=== PATIENT | male | born 1945 | race Caucasian/White ===

== ENCOUNTER 2018-06-02 01:24 | Inpatient (IN) | payer MEDICARE, MEDICAID, SELFPAY ==
[2018-06-01 22:50] VITALS: BP 130/72; PULSE 75; RESP 22; TEMP 37.5; O2SAT 94
[2018-06-01 23:20] VITALS: PULSE 69; RESP 16; O2SAT 95
[2018-06-01 23:44] VITALS: PULSE 72; TEMP 37.5
[2018-06-02] VITALS (23 sets, daily range): BP systolic 114–142; BP diastolic 51–69; PULSE 61–81; RESP 2–24; TEMP 36.9–38.2; O2SAT 92–95
--- NOTE | 2018-06-02 01:34 | W.PM.HP.N ---
Date of service: 06/02/18 Time of Service: 01:35 Assessment and Plan (1) Pancreatitis: Start date: 06/01/18 Current visit: Yes Status: Acute This is a 73-year-old gentleman who was seen at [facility] ED for evaluation of abdominal discomfort and constipation and was found to be febrile with acute diffuse pancreatitis by CT scan with some mild abdominal discomfort in the epigastrium and severe leukocytosis as well as having bibasilar pulmonary infiltrates seen on CT scan of the abdomen with no infiltrates seen on chest x-ray in a patient with COPD. He was transferred here for acute admission for treatment of his pancreatitis and pneumonia. He will be placed on bowel rest with IV hydration and ice chips with sips of fluid with his usual meds. Lipase was not markedly elevated but will be followed up in the morning and will schedule an ultrasound of the gallbladder for the morning patient still having his gallbladder and not having alcohol intake recently to explain his acute pancreatitis. We will also check his lipid profile looking for hypertriglyceridemia. (2) Pneumonia, community acquired: Start date: 06/01/18 Current visit: Yes Status: Acute With severe leukocytosis in a patient with COPD, the patient will be continued on IV antibiotics with Levaquin. Follow-up chest x-ray if not improving clinically. Maximize treatment for COPD and avoid steroids since there is no significant bronchospasm or hypoxemia. (3) Leukocytosis: Start date: 06/01/18 Current visit: Yes Status: Acute The white blood count seems out of proportion to the patient's clinical presentation. Follow-up as we treat his known acute processes with his pancreas and pneumonia. Follow-up blood cultures. He does not appear or meet the criteria for sepsis. (4) COPD (chronic obstructive pulmonary disease): Current visit: Yes Status: Chronic Continue chronic respiratory care with oxygen supplementation if needed. We will avoid steroids. (5) Dementia associated with alcoholism without behavioral disturbance: Current visit: Yes Status: Chronic Monitor for worsening mental status the patient. Comfortable presently and only mildly demented. He is not a good historian. (6) Chronic right-sided CHF (congestive heart failure): Current visit: Yes Status: Acute We will follow-up an echocardiogram in the morning and continue his diuretics for now. He is on gentle IV hydration with bowel rest and will watch for fluid overload. Daily weights. History of Present Illness Chief Complaint: Abdominal pain with constipation Narrative: This is a 73-year-old gentleman who was transferred from [facility] emergency room because of no bed mobility at that facility. He was evaluated for constipation but was found to have very severe diffuse pancreatitis by CT scan and epigastric abdominal discomfort with palpation. He also had a significant leukocytosis and was afebrile upon presentation. CT scan of the abdomen revealed the pancreatitis but also bilateral lower lung infiltrates more on the left than right with chest x-ray not revealing lobar pneumonia. He was given Levaquin and Flagyl at the [facility] ED while being evaluated with CT scan of his abdomen. He chronically resides at a level 3 facility, [facility] [place] in [facility]. He was a previous heavy drinker being an alcoholic but has not been able to drink recently at the level 3 facility. He has mild dementia from his chronic alcoholism and is unable to give accurate history though he seems to remember not living at this facility for very long, possibly from 2015 and having lived in [place] prior. Patient has a chronic indwelling Grider catheter for bladder outlet obstruction and has a history of CHF which mostly appears to be right-sided though there is no documented echocardiogram in his records from [facility]. He did have a negative cardiac evaluation in the ED with the EKG being unrevealing with sinus rhythm and troponin negative. BNP was not checked. Patient presently offers no other complaints other than his abdominal discomfort and he does purse lip breath which he states is by habit with no dyspnea or cough presently. He is not hypoxic on room air. Past medical history significant for obesity, dementia associated with alcoholism, chronic insomnia, hypertension, hyperlipidemia, BPH with bladder outlet obstruction with chronic indwelling Grider catheter, CHF on diuretics, chronic anemia, recurrent pneumonia with COPD and chronic liver disease. Past surgical history significant for pilonidal cyst removal and tonsillectomy. Patient has not had a cholecystectomy. Medications include atorvastatin 20 mg daily, carvedilol 25 mg twice a day, clotrimazole 1% topical cream twice a day on rash, Combivent Respimat 20 mcg - 100 mcg per actuation 1 inhalation 3 times a day, ferrous sulfate 3.5 mg daily, Flovent 110 mcg per actuation 1 inhalation twice a day, furosemide 40 mg daily, Incruse Ellipta 62.5 mcg per actuation 1 inhalation daily, DuoNeb nebulizer 4 times daily, melatonin 3 mg at night, NicoDerm 14 mg per 24 hours topically daily with weaning dose, Aldactone 50 mg daily and trazodone 50 mg daily at bedtime. Social history positive for patient is a former smoker quitting 1 year ago after smoking 2 packs/day and is still on nicotine patches to help with cessation in the level 3 facility. He is a former drinker with no recent alcohol intake sequelae of chronic alcoholism. Family history unavailable. Review of Systems Review of Systems 13 point review of systems otherwise unrevealing or unobtainable with patient's short-term memory loss and moderate dementia. This was reviewed with the [facility] ED physician. [facility] Social History Smoking/Tobacco Use Status: Former Tobacco Use Meds Home Medications Medication Instructions Recorded Confirmed Type atorvastatin 20 mg PO DAILY 06/02/18 06/02/18 History carvedilol 25 mg PO BID 06/02/18 06/02/18 History clotrimazole 1 applic BID PRN 06/02/18 06/02/18 History ferrous sulfate 325 mg DAILY 06/02/18 06/02/18 History fluticasone propionate [Flovent 1 puff BID 06/02/18 06/02/18 History HFA] ipratropium-albuterol 3 ml QID 06/02/18 06/02/18 History ipratropium-albuterol [Combivent 1 puff TID 06/02/18 06/02/18 History Respimat] melatonin 06/02/18 History spironolactone 50 mg DAILY 06/02/18 06/02/18 History trazodone 50 mg HS 06/02/18 06/02/18 History umeclidinium [Incruse Ellipta] 1 inh DAILY 06/02/18 06/02/18 History Allergies Allergy/AdvReac Type Severity Reaction Status Date / Time Penicillins Allergy Unverified 06/01/18 23:00 Exam Narrative Exam Narrative: General: Patient appears younger than stated age in no acute distress, obese, affect slightly flattened with poor eye contact, alert and oriented to person and place but not to time HEENT: Normocephalic, hair long and rosario, ears normal, eyes with pupils equal and reactive to light symmetrically and extraocular movement intact, sclera anicteric. Oropharynx with moist, pink mucosa Neck: Supple without JVD Back: Stooped posture with slight kyphosis, no CVA tenderness Lungs: Bronchovesicular breath sounds diffusely with fair aeration, no focalizing rales or rhonchi, slightly increased expiratory phase with no expiratory wheeze, purse lipped breathing Heart: Distant heart sounds with regular rate and rhythm, no murmurs or gallops appreciated Abdomen: Obese and soft, tender to palpation in the upper abdomen especially over the epigastrium with slight guarding but no rebound, bowel sounds hypoactive but present in all quadrants, no palpable hepatosplenomegaly, no Sandoval's sign Genitalia: Normal penis with Grider catheter in place, scrotum and testicles grossly normal Rectal: Deferred. Extremities: Nonpitting edema with chronic skin changes over lower extremities, decreased range of motion of joints but no joint swelling, no clubbing or cyanosis Skin: Pale, warm and dry with no rashes, good turgor and rough texture Neuro: Cranial nerves II through XII grossly intact, no focalizing motor deficits, decreased short-term memory Psych: Flattened affect with poor eye contact, short-term memory loss with long-term memory more intact, no abnormal thought processes, mood normal without depression or anxiety Results Imaging Imaging Studies: CT of the abdomen performed at [facility], impression acute pancreatitis with nonspecific bibasilar airspace disease greater on the left than right Labs : 06/02/18 05:35 06/02/18 05:35 CBC: H&H 12.3/37.8 with MCV 91.1, WBC 27.1, platelet count 302 Lactic acid 1.1 which is normal CMP: Random glucose 129, BUN 22 with creatinine 1.4, calcium 8.4, sodium 134, potassium 4.2 with PCO2 28.0, total protein 7.3 with albumin 3.6, total bili 0.6, alk phos 68, ALT 18 which is low and AST 24 Lipase 442 which is high normal being 23-300 LDH 510 which is normal Last Vital Signs Temp 37.5 C 06/01/18 23:44 Pulse 71 06/02/18 00:29 Resp 18 06/02/18 00:29 BP 142/55 H 06/02/18 00:29 Pulse Ox 93 L 06/02/18 00:29
[2018-06-02] MEDS: Albuterol/Ipratropium 3 ML UPD VIAL UPD ×5 (02:13→23:23)
[2018-06-02] MEDS: Normal Saline 1,000 ML 80 ML IV (02:13)
[2018-06-02] MEDS: Docusate Sodium 100 MG CAP PO ×3 (02:21→20:09)
[2018-06-02] MEDS: Heparin 5,000 UNITS/ML VIAL 5000 UNITS SC ×3 (05:32→21:26)
[2018-06-02 08:21] LABS: HCT 34.6 % (40.0-50.0); HGB 11.2 g/dL (13.5-17.5); Mean Corp. HGB Concentration 32.4 g/dL (32.0-36.0); Mean Corpuscular Hemoglobin 29.2 pg (27.0-33.0); Mean Corpuscular Volume 90.3 fL (80-95); Mean Platelet Volume 10.2 fL (8.0-11.0); Platelet Count 272 x1000/uL (130-400); RBC 3.83 m/cumm (4.50-6.00); RBC Distribution Width 14.4 % (11.8-14.1); White Blood Cell Count 22.73 k/cumm (4.4-10.8)
[2018-06-02 08:42] LABS: ALT 24 U/L (12-78); AST 15 U/L (15-37); Albumin 2.4 g/dL (3.4-5.0); Alkaline Phosphatase 61 U/L (46-116); Anion Gap 8.4 mmol/L (3-11); BUN 18 mg/dL (7-18); Bilirubin, Total 0.5 mg/dL (0.2-1.0); CO2 25.6 mmol/L (21.0-32.0); CREATININE 1.32 mg/dL (0.70-1.30); Calcium 8.3 mg/dL (8.5-10.1); Chloride 102 mmol/L (98-107); Cholesterol 97 mg/dL (50-200); Estimated GFR 53.32 (mL/min/1.73m2); Glucose 96 mg/dL (70-100); HDL Cholesterol 21 mg/dL (40-60); LDL CHOLESTEROL 63 mg/dL (<100); Potassium 4.4 mmol/L (3.5-5.1); Sodium 136 mmol/L (136-145); Total Protein 6.9 g/dL (6.4-8.2); Triglyceride 86 mg/dL (30-150)
--- NOTE | 2018-06-02 08:54 | MERGE_ITS ---
*[facility]* *[facility]* [address] [place] [address] Date of study: 06/02/2018 Transthoracic Echocardiography M-mode, complete 2D, complete spectral Doppler, and color Doppler *STUDY CONCLUSIONS* Summary: 1. Left ventricle: The cavity size was normal. Wall thickness was increased in a pattern of moderate LVH. Systolic function was hyperdynamic. The estimated ejection fraction was 65-70%. Findings consistent with diastolic dysfunction. Doppler parameters are consistent with high ventricular filling pressure. 2. Mitral valve: There was mild regurgitation. 3. Right ventricle: The cavity size was normal. Wall thickness was normal. Systolic function was normal. 4. Atrial septum: No defect or patent foramen ovale was identified. 5. Pulmonary arteries: Pulmonary systolic pressure was in the range of 50mm Hg to 60mm Hg. 6. Inferior vena cava: The vessel was patent and normal in size. The respirophasic diameter changes were in the normal range (greater than or equal to 50%), consistent with normal central venous pressure. *PATIENT PRESENTATION* Height: 172.7cm ((68in) ) S/D Pressure: 119 / 57 Weight: 117.9kg ((259.5lb) ) BSA: 2.43m^2 Test start time: 08:57 AM. Test stop time: 09:45 AM. ORDERING Paulie Ferreira REFERRING Paulie Ferreira PERFORMING Unknown PERFORMING [facility] SOFTWARE CONFIGURATION SPECIALIST RT Blanca LooR)([email or web address])GALI *PROCEDURE DATA* Procedure information: The patient was identified by two identifiers. This study was interpreted by [facility]. Pertinent images and digital data are archived for permanent storage and are available for subsequent review. Comparison was made to the study of 2007. Study status: Routine. Transthoracic echocardiography. M-mode, complete 2D, complete spectral Doppler, and color Doppler. A Transthoracic Echocardiogram was performed. Scanning was performed from the parasternal, apical, subcostal, and suprasternal notch acoustic windows. Images were obtained using an [id number] cardiac ultrasound machine. Image quality was fair. Study completion: The patient tolerated the procedure well. History: PMH: CHF. *CARDIAC ANATOMY* Left ventricle: The cavity size was normal. Wall thickness was increased in a pattern of moderate LVH. Systolic function was hyperdynamic. The estimated ejection fraction was 65-70%. The tissue Doppler parameters were abnormal. Findings consistent with diastolic dysfunction. Doppler parameters are consistent with high ventricular filling pressure. Aortic valve: Trileaflet. Doppler: There was no stenosis. There was no regurgitation. VTI ratio of LVOT to aortic valve: 0.84. Valve area (VTI): 2.4cm^2. Indexed valve area (VTI): 1cm^2/m^2. Peak velocity ratio of LVOT to aortic valve: 0.74. Valve area (Vmax): 2.2cm^2. Indexed valve area (Vmax): 0.9cm^2/m^2. Mean velocity ratio of LVOT to aortic valve: 0.79. Valve area (Vmean): 2.3cm^2. Indexed valve area (Vmean): 1cm^2/m^2. Mean gradient (S): 6.6mm Hg. Peak gradient (S): 11.1mm Hg. Aorta: Aortic root: The aortic root was normal in size. Ascending aorta: The ascending aorta was normal in size. Mitral valve: Doppler: There was no evidence for stenosis. There was mild regurgitation. Valve area by pressure half-time: 3.1cm^2. Indexed valve area by pressure half-time: 1.3cm^2/m^2. Peak gradient (D): 4.3mm Hg. Left atrium: The atrium was normal in size. Atrial septum: No defect or patent foramen ovale was identified. Right ventricle: The cavity size was normal. Wall thickness was normal. Systolic function was normal. Pulmonic valve: Doppler: There was no evidence for stenosis. There was no significant regurgitation. Peak gradient (S): 5.5mm Hg. Tricuspid valve: Doppler: There was mild regurgitation. Pulmonary artery: Poorly visualized. Pulmonary systolic pressure was in the range of 50mm Hg to 60mm Hg. Right atrium: The atrium was normal in size. Pericardium: There was no pericardial effusion. Systemic veins: Inferior vena cava: Well visualized. The vessel was patent and normal in size. The respirophasic diameter changes were in the normal range (greater than or equal to 50%), consistent with normal central venous pressure. Baseline ECG: Normal sinus rhythm. Measurements Left ventricle Value Reference LV ID, ED, PLAX 4.5 cm 3.5 - 6.0 LV ID, ES, PLAX 2.6 cm 2.1 - 4.0 LV PW thickness, ED, PLAX 1.4 cm LV end-diastolic volume, 1-p A2C 85 ml LV ejection fraction, 1-p A2C 63 % LV end-diastolic volume, 1-p A4C 96 ml LV ejection fraction, 1-p A4C 66 % LV e', lateral 0.061 m/sec LV E/e', lateral 17 LV e', medial 0.057 m/sec LV E/e', medial 18 LV e', average 0.059 m/sec LV E/e', average 18 Ventricular septum Value Reference IVS thickness, ED, PLAX 1.3 cm LVOT Value Reference LVOT ID, A-P 1.9 cm LVOT area 2.9 cm^2 LVOT peak velocity, S 1.23 m/sec LVOT mean velocity, S 0.97 m/sec LVOT VTI, S 29.4 cm LVOT peak gradient, S 6.1 mm Hg LVOT mean gradient, S 4 mm Hg Stroke volume (SV), LVOT DP 86 ml Stroke index (SV/bsa), LVOT DP 35 ml/m^2 Aortic valve Value Reference Aortic valve peak velocity, S 1.7 m/sec Aortic valve mean velocity, S 1.23 m/sec Aortic valve VTI, S 35.0 cm Aortic mean gradient, S 6.6 mm Hg Aortic peak gradient, S 11.1 mm Hg VTI ratio, LVOT/AV 0.84 Aortic valve area, VTI 2.4 cm^2 Velocity ratio, peak, LVOT/AV 0.74 Aortic valve area, peak velocity 2.2 cm^2 Velocity ratio, mean, LVOT/AV 0.79 Aortic valve area, mean velocity 2.3 cm^2 Aortic valve area/bsa, mean velocity 1 cm^2/m^2 Aorta Value Reference Aortic root ID, ED 3.7 cm Ascending aorta ID, A-P, S 2.6 cm Left atrium Value Reference LA ID, A-P, ES 4.5 cm LA ID/bsa, A-P 1.8 cm/m^2 <=2.2 LA area, ES, A4C 22.5 cm^2 8.8 - 23.4 LA area, ES, A2C 24 cm^2 LA volume/bsa, ES, 1-p A4C 32 ml/m^2 LA volume, ES, 2-p 71 ml LA volume/bsa, ES, 2-p 29 ml/m^2 LA/aortic root ratio 1.22 Mitral valve Value Reference Mitral E-wave peak velocity 1.04 m/sec Mitral A-wave peak velocity 1.17 m/sec Mitral deceleration time (H) 244 ms 150 - 230 Mitral pressure half-time 71 ms Mitral peak gradient, D 4.3 mm Hg Mitral E/A ratio, peak 0.89 Mitral valve area, PHT, DP 3.1 cm^2 Pulmonary veins Value Reference Pulmonary vein peak velocity, S 0.8 m/sec Pulmonary vein peak velocity, D 0.6 m/sec Pulmonary vein velocity ratio, peak, 1.33 S/D Pulmonary vein A-wave reversal peak 0.39 m/sec velocity Tricuspid valve Value Reference Tricuspid regurg peak velocity 3.6 m/sec Tricuspid peak RV-RA gradient 52.7 mm Hg Right atrium Value Reference RA area, ES, A4C 15.2 cm^2 8.3 - 19.5 Pulmonic valve Value Reference Pulmonic peak gradient, S 5.5 mm Hg Legend: (L) and (H) juan values outside specified reference range. I have personally reviewed the images and have reviewed and edited the reported findings. Electronically signed by Darío Posada MD 06/02/2018 10:40
--- NOTE | 2018-06-02 09:05 | PDOC.CMIN ---
Care Management Initial Assess REASON FOR HOSPITALIZATION:: Pneumonia, Pancreatitis PAST MEDICAL HISTORY/PAST SURGICAL HISTORY:: CHF-chronic right sided, COPD, Dementia associated with alcoholism without behavioral disturbance, HTN, liver disease, pneumathemia, pancreattitis, leukocytosis PREVIOUS FUNCTIONAL STATUS/SOCIAL/FAMILY SUPPORTS:: Juan C resides in an assisted living home; [facility] in [place], [place]. His primary supporta are his brother, Andreas and sister in law Sue. Per reports he is oriented to self only due to dementia associated with prior alcohol abuse. CURRENT FUNCTIONAL STATUS:: Juan C was lying in bed, pleasant in interaction and open to discussion. He reported anticipating returning to [facility] but reported that would be up to his brother and the facility. ADVANCE DIRECTIVES:: POA: Sue Johns Has patient been provided with information about the portal?: No Did the patient sign up for the portal?: No CODE STATUS:: Full Code INSURANCE COVERAGE / FINANCIAL ISSUES:: Medicaid. Medicare CURRENT HOME/COMMUNITY SERVICES/EQUIPMENT:: Assisted living facility. PRIMARY CARE PHYSICIAN:: Paulie Ferreira POTENTIAL DISCHARGE NEEDS:: Coordinated return to assisted living facility, follow up appointments. PATIENT/FAMILY EDUCATION NEEDS:: Review of discharge instructions; discuss Ask Me Three. ANTICIPATED BARRIERS TO DISCHARGE:: None identified. TRANSPORTATION:: TBD by clinical need; remains on bedrest. PLAN:: CM will continue to monitor clinical status. Juan C will return to [facility]; [facility] [place] in [place], [place]. Transportation dependent on mobility.
[2018-06-02] MEDS: Atorvastatin 20 MG TAB PO (09:08)
[2018-06-02] MEDS: Carvedilol 25 MG TAB PO ×2 (09:08→20:09)
--- NOTE | 2018-06-02 10:20 | DI.US_ITS ---
SYMPTOM/DIAGNOSIS: PANCREATITIS LIMITED ABDOMEN ULTRASOUND: The right upper quadrant was scanned. Multiple small stones are noted in the gallbladder. There is no gallbladder wall thickening or pericholecystic fluid. The common bile duct measures 4 mm. No common duct stones are seen. The pancreas appeared echogenic. No surrounding fluid is seen. The pancreas was not well visualized. IMPRESSION: Cholelithiasis. Limited visualization of the pancreas.
--- NOTE | 2018-06-02 10:30 | INITIAL_ITS ---
Care Management Initial Assess REASON FOR HOSPITALIZATION:: Pneumonia, Pancreatitis PAST MEDICAL HISTORY/PAST SURGICAL HISTORY:: CHF-chronic right sided, COPD, Dementia associated with alcoholism without behavioral disturbance, HTN, liver disease, pneumathemia, pancreattitis, leukocytosis PREVIOUS FUNCTIONAL STATUS/SOCIAL/FAMILY SUPPORTS:: Juan C resides in an assisted living home; [facility] in [place], [place]. His primary supporta are his brother, Andreas and sister in law Sue. Per reports he is oriented to self only due to dementia associated with prior alcohol abuse. CURRENT FUNCTIONAL STATUS:: Juan C was lying in bed, pleasant in interaction and open to discussion. He reported anticipating returning to [facility] but reported that would be up to his brother and the facility. ADVANCE DIRECTIVES:: POA: Sue Johns Has patient been provided with information about the portal?: No Did the patient sign up for the portal?: No CODE STATUS:: Full Code INSURANCE COVERAGE / FINANCIAL ISSUES:: Medicaid. Medicare CURRENT HOME/COMMUNITY SERVICES/EQUIPMENT:: Assisted living facility. PRIMARY CARE PHYSICIAN:: Paulie Ferreira POTENTIAL DISCHARGE NEEDS:: Coordinated return to assisted living facility, follow up appointments. PATIENT/FAMILY EDUCATION NEEDS:: Review of discharge instructions; discuss Ask Me Three. ANTICIPATED BARRIERS TO DISCHARGE:: None identified. TRANSPORTATION:: TBD by clinical need; remains on bedrest. PLAN:: CM will continue to monitor clinical status. Juan C will return to [facility]; [facility] [place] in [place], [place]. Transportation dependent on mobility.
[2018-06-02] MEDS: Polyethylene Glycol 3350 17 GM PACKET PO (12:45)
[2018-06-02] MEDS: Normal Saline 1,000 ML 125 ML IV (12:45)
--- NOTE | 2018-06-02 14:33 | PGE_ITS ---
Date of Service Date of service: 06/02/18 Time of Service: 14:25 Subjective Interval history since last seen: Mr Das states he has no abdominal pain whatsoever. He still hadn't had a BM. He denies dizziness, chest pain, shortness of breath, complains of cough, but states it's getting better. He denies any nausea/vomiting. He was hungry and requested food. At this point, he does not appear to actually have clinical pancreatitis. I think his borderline elevated lipase and CT findings may have had more to do with constipation. We will continue his bowel regimen. For CAP, we will continue levofloxacin. Echo shows diastolic dysfunction, EF is preserved. Patient is not in fluid overloaded clinically. He does have pulmonary hypertension and, if he has not yet had workup for obstructive sleep apnea, he should. We will attempt to find out. Will monitor fo r nocturnal hypoxia. Objective Objective Clinical Data: Abnormal lab results 06/02/18 06/02/18 Range/Units 08:08 08:08 WBC 22.73 H (4.4-10.8) k/cumm RBC 3.83 L (4.50-6.00) m/cumm Hgb 11.2 L (13.5-17.5) g/dL Hct 34.6 L (40.0-50.0) % RDW 14.4 H (11.8-14.1) % Creatinine 1.32 H (0.70-1.30) mg/dL Calcium 8.3 L (8.5-10.1) mg/dL Albumin 2.4 L (3.4-5.0) g/dL HDL Cholesterol 21 L (40-60) mg/dL Vital Signs Temperature 37 C 06/02/18 11:56 Temperature Source Temporal Artery Scan 06/02/18 11:56 Pulse 80 06/02/18 12:05 Pulse Rhythm Regular 06/02/18 11:53 Pulse 66 06/02/18 11:59 Respiratory Rate 14 06/02/18 12:05 Respiratory Effort 06/02/18 11:53 Respiratory Depth Normal 06/02/18 11:53 Respiratory Pattern Normal 06/02/18 11:53 Blood Pressure 114/51 L 06/02/18 11:59 Blood Pressure Mean 64 06/02/18 11:59 Pulse Oximetry 94 L 06/02/18 12:05 Oxygen Delivery Method Room Air 06/02/18 11:56 Oxygen Flow Rate 0 06/02/18 11:56 Pain Level 0 06/02/18 11:56 Comment 06/02/18 11:56 Intake & Output 06/01/18 06/02/18 06/02/18 23:59 11:59 23:59 Intake Total 516 / 1400 884 / 1400 Output Total 1450 / 1450 Balance -934 / -50 884 / -50 Weight 118 kg Intake: IV 516 / 1000 484 / 1000 Oral 400 / 400 Output: Urine 1450 / 1450 Other: Urine Color Yellow Light Bita Urine Appearance Clear Clear Comment Indwelling campa catheter in place. Laboratory Results WBC 22.73 k/cumm (4.4-10.8) H 06/02/18 08:08 RBC 3.83 m/cumm (4.50-6.00) L 06/02/18 08:08 Hgb 11.2 g/dL (13.5-17.5) L 06/02/18 08:08 Hct 34.6 % (40.0-50.0) L 06/02/18 08:08 MCV 90.3 fL (80-95) 06/02/18 08:08 MCH 29.2 pg (27.0-33.0) 06/02/18 08:08 MCHC 32.4 g/dL (32.0-36.0) 06/02/18 08:08 RDW 14.4 % (11.8-14.1) H 06/02/18 08:08 Plt Count 272 x1000/uL (130-400) 06/02/18 08:08 MPV 10.2 fL (8.0-11.0) 06/02/18 08:08 Sodium 136 mmol/L (136-145) 06/02/18 08:08 Potassium 4.4 mmol/L (3.5-5.1) 06/02/18 08:08 Chloride 102 mmol/L (98-107) 06/02/18 08:08 Carbon Dioxide 25.6 mmol/L (21.0-32.0) 06/02/18 08:08 Anion Gap 8.4 mmol/L (3-11) 06/02/18 08:08 BUN 18 mg/dL (7-18) 06/02/18 08:08 Creatinine 1.32 mg/dL (0.70-1.30) H 06/02/18 08:08 Estimated GFR/1.73 m2 53.32 (mL/min/1.73m2) 06/02/18 08:08 Glucose 96 mg/dL (70-100) 06/02/18 08:08 Calcium 8.3 mg/dL (8.5-10.1) L 06/02/18 08:08 Total Bilirubin 0.5 mg/dL (0.2-1.0) 06/02/18 08:08 AST 15 U/L (15-37) 06/02/18 08:08 ALT 24 U/L (12-78) 06/02/18 08:08 Alkaline Phosphatase 61 U/L (46-116) 06/02/18 08:08 Total Protein 6.9 g/dL (6.4-8.2) 06/02/18 08:08 Albumin 2.4 g/dL (3.4-5.0) L 06/02/18 08:08 Triglycerides 86 mg/dL (30-150) 06/02/18 08:08 Total Cholesterol 97 mg/dL (50-200) 06/02/18 08:08 LDL Cholesterol Direct 63 mg/dL (<100) 06/02/18 08:08 HDL Cholesterol 21 mg/dL (40-60) L 06/02/18 08:08
--- NOTE | 2018-06-02 15:01 | PHARADMIT ---
Addendum entered by Guerrero Law III 06/03/18 11:19: Pharmacy Note Subjective MD concerned patient my have aspiration Pneumonia, On Levaquin IV. Also concerned about need for a BM. No abdominal pain ccomplaints Objective VS-OK Temp-37.3C Lytes-OK, SCr-1.34 WBC-16.75 H&H-10.1/31.5 Plts-285 Wgt-118.3 kg No BM Assessment Levaquin continues, on bowel regimen. Plan Possible discharge tomorrow. Original Note: Admission Pharmacy Clinical Review pneumonia, pancreatitis Code Status Full Code Current Weight 118 kg Renally Cleared and Narrow Therapeutic Index Meds Crcl ~63.1 mL/min using adjusted bodyweight current meds okay QTc Value / Action Taken QTc 390 BP Control, Fever BP 114/51 afebrile Electrolytes reviewed within normal limits DVT Prophylaxis heparin Opiate Usage / Scheduled Bowel Regimen Ordered no/godwin and prn Plt/SCr for Heparin / Enoxaparin plt 272 SCr 1.32 INR for Warfarin n/a H/H stable, WBC/Bands h/h 11.2/34.6 wbc 22.73 Antibiotic appropriateness none Cultures and Sensitivities MRSA- pending Surgical ABX d/c within 24 hr n/a DM control / Insulin Dosing BG 96 none Heart Failure (Check EF%) (ANJELICA's, B-Block, Diuretics) carvedilol IV to PO Switch n/a Home Meds Reviewed -multiple anticilinergic meds- increased risk of anticholinergic effects (umeclidinium, ipratropium) -carvedilol may diminish the bronchodilatory effect of albuterol Home Meds Not Ordered clotrimazole, ferrous sulfate, fulticasone, spironolactone (was cancelled), umeclidinium Comments
[2018-06-02] MEDS: levoFLOXacin 750 MG/150 ML BAG 100 MG IVPB (16:09)
[2018-06-02] MEDS: Bisacodyl 5 MG TABEC 10 MG PO (16:10)
[2018-06-02] MEDS: Acetaminophen 500 MG TAB 1000 MG PO (18:28)
[2018-06-02] MEDS: Senna TAB 1 TAB PO (20:10)
[2018-06-02] MEDS: Mometasone 220 MCG 14 DOSE INHALER 1 PUFF IH (20:10)
[2018-06-02] MEDS: Melatonin 3 MG TAB PO (21:25)
[2018-06-02] MEDS: traZODone 50 MG TAB PO (21:25)
[2018-06-03] VITALS (9 sets, daily range): BP systolic 106–127; BP diastolic 59–66; PULSE 62–71; RESP 1–20; TEMP 37.3–37.9; O2SAT 93–96
[2018-06-03] MEDS: Normal Saline 1,000 ML 75 ML IV ×2 (01:42→14:35)
[2018-06-03] MEDS: Heparin 5,000 UNITS/ML VIAL 5000 UNITS SC ×3 (05:13→21:55)
[2018-06-03] MEDS: Albuterol/Ipratropium 3 ML UPD VIAL UPD ×4 (05:13→23:28)
[2018-06-03 07:13] LABS: HCT 31.5 % (40.0-50.0); HGB 10.1 g/dL (13.5-17.5); Mean Corp. HGB Concentration 32.1 g/dL (32.0-36.0); Mean Corpuscular Hemoglobin 29.3 pg (27.0-33.0); Mean Corpuscular Volume 91.3 fL (80-95); Mean Platelet Volume 10.2 fL (8.0-11.0); Platelet Count 281 x1000/uL (130-400); RBC 3.45 m/cumm (4.50-6.00); RBC Distribution Width 14.5 % (11.8-14.1); White Blood Cell Count 16.75 k/cumm (4.4-10.8)
[2018-06-03 07:46] LABS: Anion Gap 8.3 mmol/L (3-11); BUN 21 mg/dL (7-18); CO2 24.7 mmol/L (21.0-32.0); CREATININE 1.34 mg/dL (0.70-1.30); Calcium 8.3 mg/dL (8.5-10.1); Chloride 103 mmol/L (98-107); Glucose 108 mg/dL (70-100); Magnesium 2.3 mg/dL (1.8-2.4); Potassium 4.9 mmol/L (3.5-5.1); Sodium 136 mmol/L (136-145)
[2018-06-03 07:49] LABS: ALT 24 U/L (12-78); AST 16 U/L (15-37); Albumin 2.2 g/dL (3.4-5.0); Alkaline Phosphatase 59 U/L (46-116); Bilirubin, Total 0.3 mg/dL (0.2-1.0); Total Protein 6.6 g/dL (6.4-8.2)
[2018-06-03 07:50] LABS: Bilirubin, Direct 0.11 mg/dL (0.00-0.20)
[2018-06-03] MEDS: Docusate Sodium 100 MG CAP PO ×3 (08:09→19:55)
[2018-06-03] MEDS: Senna TAB 1 TAB PO ×2 (08:09→19:55)
[2018-06-03] MEDS: Carvedilol 25 MG TAB PO ×2 (08:09→19:56)
[2018-06-03] MEDS: Atorvastatin 20 MG TAB PO (08:09)
--- NOTE | 2018-06-03 10:36 | PDOC.CMPRO ---
Care Management Progress Note S/O: Juan C remains pleasantly confused but appropriate in interaction and was lying in bed when CM met with him. MD shared concerns for aspiration risks, and continues to monitor Juan C closely. CM will continue to follow. Anticipate he may be discharge ready as soon as tomorrow. If brother or sister in law are unavailable the facility is willing to provide transportation if available. CM left for Natividad and Andreas inquiring as to availability. A: 73 year old male admitted to 06/02/18 for Pneumonia, Pancreatitis, Gallstones P: CM will continue to monitor clinical status. Juan C will return to [facility] assisted [facility] [place] in [place], [place]. He will transport with family or via facility vehicle.
[2018-06-03] MEDS: levoFLOXacin 750 MG/150 ML BAG 100 MG IVPB (15:56)
--- NOTE | 2018-06-03 17:27 | CMPROGNOTE_ITS ---
Care Management Progress Note S/O: Juan C remains pleasantly confused but appropriate in interaction and was lying in bed when CM met with him. MD shared concerns for aspiration risks, and continues to monitor Juan C closely. CM will continue to follow. Anticipate he may be discharge ready as soon as tomorrow. If brother or sister in law are unavailable the facility is willing to provide transportation if available. CM left for Natividad and Andreas inquiring as to availability. A: 73 year old male admitted to 06/02/18 for Pneumonia, Pancreatitis, Gallstones P: CM will continue to monitor clinical status. Juan C will return to [facility] assisted living [place] in [place], [place]. He will transport with family or via facility vehicle.
--- NOTE | 2018-06-03 19:31 | W.PM.PROGNOT ---
Date of Service Date of service: 06/03/18 Time of Service: 15:00 Assessment and Plan (1) Pneumonia, community acquired: Current visit: Yes Status: Acute Continue empiric levofloxacin. Repeat CXR in am. (2) Leukocytosis: Current visit: Yes Status: Acute Improved - recheck in am. Likely due to above (3) COPD (chronic obstructive pulmonary disease): Current visit: Yes Status: Chronic Appears at baseline - no change in tx (4) Pancreatitis: Current visit: Yes Status: Ruled-out Clinically, did not have it. (5) Chronic right-sided CHF (congestive heart failure): Current visit: Yes Status: Acute IVF d/c'ed. Monitor volume status (6) Dementia associated with alcoholism without behavioral disturbance: Current visit: Yes Status: Chronic Behaviors stable. I do not have any concerns about the patient returning to his prior to admission setting. (7) Constipation: Current visit: Yes Status: Acute Intensify bowel regimen. (8) Discharge planning issues: Current visit: Yes Status: Acute Full code. We are hoping to discharge patient tomorrow (9) DVT prophylaxis: Current visit: Yes Status: Acute heparin SQ Subjective Interval history since last seen: Mr Das states he feels better, that he does not have any chest pain, shortness of breath, dizziness, nausea. He does not think that he has had a BM today, but thinks he did yesterday. I am unable to find record of this in the chart at this time. Exam Narrative Exam Narrative: General: Obese male, pleasantly confused, A&OX1, pursed lip breathing HEENT: EOMI, MMM Heart: RRR, no m/r/g Lungs: CTAB GI: abdomen is soft, +bowel sounds, nontender, nondistended Extremities: no e/c/c BLE's Objective Objective Clinical Data: Abnormal lab results 06/03/18 06/03/18 06/03/18 Range/Units 06:50 06:50 06:50 WBC 16.75 H (4.4-10.8) k/cumm RBC 3.45 L (4.50-6.00) m/cumm Hgb 10.1 L (13.5-17.5) g/dL Hct 31.5 L (40.0-50.0) % RDW 14.5 H (11.8-14.1) % BUN 21 H (7-18) mg/dL Creatinine 1.34 H (0.70-1.30) mg/dL Glucose 108 H (70-100) mg/dL Calcium 8.3 L (8.5-10.1) mg/dL Albumin 2.2 L (3.4-5.0) g/dL Vital Signs Temperature 37.4 C 06/03/18 15:55 Temperature Source Tympanic 06/03/18 15:55 Pulse 63 06/03/18 15:55 Pulse Rhythm Regular 06/03/18 07:55 Pulse 66 06/02/18 17:00 Respiratory Rate 19 06/03/18 15:55 Respiratory Effort 06/03/18 07:55 Respiratory Depth Normal 06/03/18 07:55 Respiratory Pattern Normal 06/03/18 07:55 Blood Pressure 116/59 L 06/03/18 15:55 Blood Pressure Mean 79 06/02/18 16:07 Pulse Oximetry 94 L 06/03/18 15:55 Oxygen Delivery Method Room Air 06/03/18 15:55 Oxygen Flow Rate 0 06/03/18 15:55 Pain Level 0 06/02/18 17:30 Comment 06/02/18 11:56 Intake & Output 06/02/18 06/03/18 06/03/18 23:59 11:59 23:59 Intake Total 2675.25 / 3191.25 250 / 1896.25 1646.25 / 1896.25 Output Total 300 / 1750 950 / 950 Balance 2375.25 / 1441.25 -700 / 946.25 1646.25 / 946.25 Weight 118.3 kg Intake: IV 2065.25 / 2581.25 1166.25 / 1166.25 Oral 610 / 610 250 / 730 480 / 730 Output: Urine 300 / 1750 950 / 950 Other: Urine Color Pale Light Bita Yellow Urine Appearance Clear Clear Laboratory Results WBC 16.75 k/cumm (4.4-10.8) H 06/03/18 06:50 RBC 3.45 m/cumm (4.50-6.00) L 06/03/18 06:50 Hgb 10.1 g/dL (13.5-17.5) L 06/03/18 06:50 Hct 31.5 % (40.0-50.0) L 06/03/18 06:50 MCV 91.3 fL (80-95) 06/03/18 06:50 MCH 29.3 pg (27.0-33.0) 06/03/18 06:50 MCHC 32.1 g/dL (32.0-36.0) 06/03/18 06:50 RDW 14.5 % (11.8-14.1) H 06/03/18 06:50 Plt Count 281 x1000/uL (130-400) 06/03/18 06:50 MPV 10.2 fL (8.0-11.0) 06/03/18 06:50 Sodium 136 mmol/L (136-145) 06/03/18 06:50 Potassium 4.9 mmol/L (3.5-5.1) 06/03/18 06:50 Chloride 103 mmol/L (98-107) 06/03/18 06:50 Carbon Dioxide 24.7 mmol/L (21.0-32.0) 06/03/18 06:50 Anion Gap 8.3 mmol/L (3-11) 06/03/18 06:50 BUN 21 mg/dL (7-18) H 06/03/18 06:50 Creatinine 1.34 mg/dL (0.70-1.30) H 06/03/18 06:50 Estimated GFR/1.73 m2 52.40 (mL/min/1.73m2) 06/03/18 06:50 Glucose 108 mg/dL (70-100) H 06/03/18 06:50 Calcium 8.3 mg/dL (8.5-10.1) L 06/03/18 06:50 Magnesium 2.3 mg/dL (1.8-2.4) 06/03/18 06:50 Total Bilirubin 0.3 mg/dL (0.2-1.0) 06/03/18 06:50 Conjugated Bilirubin 0.11 mg/dL (0.00-0.20) 06/03/18 06:50 AST 16 U/L (15-37) 06/03/18 06:50 ALT 24 U/L (12-78) 06/03/18 06:50 Alkaline Phosphatase 59 U/L (46-116) 06/03/18 06:50 Total Protein 6.6 g/dL (6.4-8.2) 06/03/18 06:50 Albumin 2.2 g/dL (3.4-5.0) L 06/03/18 06:50 Triglycerides 86 mg/dL (30-150) 06/02/18 08:08 Total Cholesterol 97 mg/dL (50-200) 06/02/18 08:08 LDL Cholesterol Direct 63 mg/dL (<100) 06/02/18 08:08 HDL Cholesterol 21 mg/dL (40-60) L 06/02/18 08:08
[2018-06-03] MEDS: Milk of Magnesia 30 ML CUP PO (19:54)
[2018-06-03] MEDS: Bisacodyl 10 MG SUPP PR (19:55)
[2018-06-03] MEDS: Mometasone 220 MCG 14 DOSE INHALER 1 PUFF IH (19:56)
[2018-06-03] MEDS: traZODone 50 MG TAB PO (21:55)
[2018-06-03] MEDS: Melatonin 3 MG TAB PO (21:55)
[2018-06-04 03:33] VITALS: BP 117/64; PULSE 66; RESP 18; TEMP 37.7; O2SAT 94
[2018-06-04] MEDS: Albuterol/Ipratropium 3 ML UPD VIAL UPD ×3 (05:07→17:57)
[2018-06-04] MEDS: Heparin 5,000 UNITS/ML VIAL 5000 UNITS SC ×3 (05:07→21:46)
--- NOTE | 2018-06-04 07:03 | DI.RAD_ITS ---
SYMPTOM/DIAGNOSIS: F/U PNEUMONIA PORTABLE AP CHEST: Comparison is made with 01/30/08. No recent films are available. The heart is mildly enlarged. There are linear densities at the left lung base which could represent atelectasis versus infiltrate. IMPRESSION: Suboptimal exam. Question of left lower lobe infiltrate versus atelectasis.
[2018-06-04 07:13] LABS: Abs Immature Grans 0.04 k/cumm (0.0-0.09); Absolute Eosinophil Count 0.13 k/cumm (0.0-0.7); Basophils % 0.1; Eosinophils % 0.8; HGB 10.6 g/dL (13.5-17.5); Immature Grans % 0.2; Lymphocytes % 7.7; Mean Corp. HGB Concentration 32.1 g/dL (32.0-36.0); Mean Corpuscular Hemoglobin 29.3 pg (27.0-33.0); Mean Corpuscular Volume 91.2 fL (80-95); Mean Platelet Volume 10.4 fL (8.0-11.0); Neutrophils % 83.2; Platelet Count 296 x1000/uL (130-400); RBC 3.62 m/cumm (4.50-6.00); RBC Distribution Width 14.8 % (11.8-14.1); White Blood Cell Count 16.16 k/cumm (4.4-10.8)
[2018-06-04 07:25] VITALS: BP 111/63; PULSE 63; RESP 20; TEMP 37.3; O2SAT 95
[2018-06-04 07:25] LABS: Absolute Basophil Count 0.02 k/cumm (0.0-0.2); Absolute Lymphocyte Count 1.24 k/cumm (1.2-3.4); Absolute Monocyte Count 1.29 k/cumm (0.11-0.7); Absolute Neutrophil Count 13.45 k/cumm (1.2-6.7)
[2018-06-04] MEDS: Docusate Sodium 100 MG CAP PO ×3 (07:36→20:18)
[2018-06-04] MEDS: Senna TAB 1 TAB PO ×2 (07:36→20:18)
[2018-06-04] MEDS: Atorvastatin 20 MG TAB PO (07:36)
[2018-06-04] MEDS: Carvedilol 25 MG TAB PO ×2 (07:36→20:18)
[2018-06-04 07:43] LABS: ALT 34 U/L (12-78); AST 25 U/L (15-37); Albumin 2.2 g/dL (3.4-5.0); Alkaline Phosphatase 66 U/L (46-116); BUN 20 mg/dL (7-18); Bilirubin, Total 0.3 mg/dL (0.2-1.0); Calcium 8.2 mg/dL (8.5-10.1); Chloride 103 mmol/L (98-107); Estimated GFR 54.26 (mL/min/1.73m2); Glucose 100 mg/dL (70-100); Magnesium 2.3 mg/dL (1.8-2.4); Potassium 4.8 mmol/L (3.5-5.1); Sodium 136 mmol/L (136-145); Total Protein 6.5 g/dL (6.4-8.2)
--- NOTE | 2018-06-04 09:45 | DI.VRAD_ITS ---
EXAM: XR Chest, 1 View EXAM DATE/TIME: 06/04/2018 7:10 AM CLINICAL HISTORY: 73 years old, male; Signs and symptoms; Other: F/u pneumonia TECHNIQUE: Imaging protocol: XR of the chest, 1 view. COMPARISON: No relevant prior studies available. FINDINGS: Heart: Borderline heart size. Lordotic projection. Mediastinum: Calcific aortic knob. Xi: Normal . Lungs: Left lower lobe infiltrate with additional left basilar atelectasis Chronic interstitial lung pattern is present. Mildly increased pulmonary vascularity. No pleural effusion or pneumothorax. Bones: Thoracic osteophytes/scoliosis. Acromioclavicular joint hypertrophic spurring. Soft Tissues: Normal. Tubes / Lines: None IMPRESSION: 1. Retrocardiac consolidation or pneumonia. Left basilar atelectasis. 2. No pneumothorax. Thank you for the opportunity to share in the care of this patient. Dictated and Authenticated by: Colin Perez MD. Ordering:PREETI Moralez MD
[2018-06-04 11:00] VITALS: BP 101/52; PULSE 53; RESP 19; TEMP 37.4; O2SAT 94
--- NOTE | 2018-06-04 11:42 | PT.INIE ---
Date of service: 06/04/18 Time of Service: 09:59 PT Notes Inpatient Physical Therapy Evaluation Date: 06/04/2018 Referring Doctor: Didi Arias NP PT Orders: PT CONSULT: Please evaluate for discharge needs Precautions: Fall. Contact. Patient Profile/Admitting Diagnosis: Patient is a 73-year-old male who presented to the emergency department at [facility] with complaints of abdominal pain, constipation, and fever. Patient was diagnosed with pancreatitis, acute on chronic right-sided congestive heart failure, and pneumonia upon transfer at [facility] on 06/02/18. Order was received today to assess for equipment and any other discharge needs by the patient. PMHX: Medical History obesity, dementia associated with alcoholism, chronic insomnia, hypertension, hyperlipidemia, BPH with bladder outlet obstruction with chronic indwelling Grider catheter, CHF on diuretics, chronic anemia, recurrent pneumonia with COPD and chronic liver disease. Surgical History pilonidal cyst removal and tonsillectomy Social History/Home Situation: Patient lives in an assisted living facility, [facility] in [place], [place]. Equipment Owned/DME: None Subjective: Juan C hopes to go back today to the place where he was staying although he could not identify the name of the assisted living facility. He is agreeable for a physical therapy consult to assess for equipment needs and facilitate safe discharge planning. Objective: General Observation: Patient seen resting in bed. No no swelling noted on B LE/UE. mental Status: Patient alert and oriented as to person. He is aware that he is in a different facility but cannot name the hospital he is currently in. He is unable to identify the current day but was able to tell time by looking at the clock. Pain: Denies ROM: Right Upper Extremity: WFL Left Upper Extremity: WFL Right Lower Extremity: WFL Left Lower Extremity: WFL Strength: Right Upper Extremity: WFL Left Upper Extremity: WFL Right Lower Extremity: Hip flexors 4+/5. Knee extensors 4+/5. Knee flexors 5/5. Ankle dorsiflexors 5/. Ankle plantar flexors 5/5. Left Lower Extremity: Hip flexors 4+/5. Knee extensors 4+/5. Knee flexors 5/5. Ankle dorsiflexors 5/. Ankle plantar flexors 5/5. Sensation: Bed Mobility/Transfers: Rolling supervision Supine to sit supervision Sit to supine supervision Sit to stand supervision Stand to sit supervision Bed to chair supervision Chair to bed supervision Gait: Patient was able to complete in room ambulation of 25 feet x2 with 2 turns in 2 trials of backing up onto transfer surface with minimal verbal cues provided for hand placement and controlled descent. No assistive device needed. CGA provided. No LOB nor dyspnea observed. Balance: Static Sitting: Good Dynamic Sitting: Good Static Standing: Fair Dynamic Standing: Fair Special Tests: Mobility Limitations Standardized Measure [facility] 6 clicks Basic Mobility Inpatient Short Form: Raw Score: 18 CMS Score: 47% deficit Informed Consent/Education: Patient instructed in purpose of PT consult and discharge recommendations. Assessment: Patient is a 73 year old male referred to physical therapy services with the diagnosis of pancreatitis, acute on chronic right-sided CHF, and pneumonia. Patient presents with clinical signs and symptoms consistent with current/admitting diagnoses that have resulted to mobility limitations, gait instability, generalized weakness, and lack of motor control as demonstrated by the following impairment level findings: 1. Impaired strength to B LE major muscle groups 2. Impaired balance 3. Impaired activity tolerance 4. Impaired safety awareness Impairments are contributing to the following functional limitations: 1. Need for assistance with bed mobility skills 2. Need for assistance with with transfers 3. Need for assistance with ambulate without assistive device and physical assistance 4. Increase completion time for mobility ADL performance 5. Increased fall risk Patient is assessed as a Low 32296 complexity based on the following: History: 73-year-old male admitted to this facility for evaluation of mobility level and discharge needs Examination: AMPAC score of 18 with CMS score of 47% deficit with underlying impairments and functional limitations as noted above Presentation: Stable Decision Makin low complexity Goals: N/A. Patient goes home goes back today to assisted living facility where he previously was. See discharge recommendations below. DISCHARGE RECOMMENDATIONS: Continue with skilled Home Health PT services at [facility] in order to facilitate a smooth transition to discharge destination and to educate and train caregivers for safety as well as for functional maintenance program. No equipment needs at this time. TREATMENT CODE/TIME: 52076 29 minutes beginning at 9:59 AM.
--- NOTE | 2018-06-04 11:48 | IN_ITS ---
Date of service: 06/04/18 Time of Service: 09:59 PT Notes Inpatient Physical Therapy Evaluation Date: 06/04/2018 Referring Doctor: Didi Arias NP PT Orders: PT CONSULT: Please evaluate for discharge needs Precautions: Fall. Contact. Patient Profile/Admitting Diagnosis: Patient is a 73-year-old male who presented to the emergency department at [facility] with complaints of abdominal pain, constipation, and fever. Patient was diagnosed with pancreatitis, acute on chronic right-sided congestive heart failure, and pneumonia upon transfer at [facility] on 06/02/18. Order was received today to assess for equipment and any other discharge needs by the patient. PMHX: Medical History obesity, dementia associated with alcoholism, chronic insomnia, hypertension, hyperlipidemia, BPH with bladder outlet obstruction with chronic indwelling Fole y catheter, CHF on diuretics, chronic anemia, recurrent pneumonia with COPD and chronic liver disease. Surgical History pilonidal cyst removal and tonsillectomy Social History/Home Situation: Patient lives in an assisted living facility, [facility] in [place], [place]. Equipment Owned/DME: None Subjective: Juan C hopes to go back today to the place where he was staying although he could not identify the name of the assisted living facility. He is agreeable for a physical therapy consult to assess for equipment needs and facilitate safe discharge planning. Objective: General Observation: Patient seen resting in bed. No no swelling noted on B LE/UE. mental Status: Patient alert and oriented as to person. He is aware that he is in a different facility but cannot name the hospital he is currently in. He is unable to identify the current day but was able to tell time by looking at the clock. Pain: Denies ROM: Right Upper Extremity: WFL Left Upper Extremity: WFL Right Lower Extremity: WFL Left Lower Extremity: WFL Strength: Right Upper Extremity: WFL Left Upper Extremity: WFL Right Lower Extremity: Hip flexors 4+/5. Knee extensors 4+/5. Knee flexors 5/5. Ankle dorsiflexors 5/. Ankle plantar flexors 5/5. Left Lower Extremity: Hip flexors 4+/5. Knee extensors 4+/5. Knee flexors 5/5. Ankle dorsiflexors 5/. Ankle plantar flexors 5/5. Sensation: Bed Mobility/Transfers: Rolling supervision Supine to sit supervision Sit to supine supervision Sit to stand supervision Stand to sit supervision Bed to chair supervision Chair to bed supervision Gait: Patient was able to complete in room ambulation of 25 feet x2 with 2 turns in 2 trials of backing up onto transfer surface with minimal verbal cues provided for hand placement and controlled descent. No assistive device needed. CGA provided. No LOB nor dyspnea observed. Balance: Static Sitting: Good Dynamic Sitting: Good Static Standing: Fair Dynamic Standing: Fair Special Tests: Mobility Limitations Standardized Measure [facility] 6 clicks Basic Mobility Inpatient Short Form: Raw Score: 18 CMS Score: 47% deficit Informed Consent/Education: Patient instructed in purpose of PT consult and discharge recommendations. Assessment: Patient is a 73 year old male referred to physical therapy services with the diagnosis of pancreatitis, acute on chronic right-sided CHF, and pneumonia. Patient presents with clinical signs and symptoms consistent with current/admitting diagnoses that have resulted to mobility limitations, gait instability, generalized weakness, and lack of motor control as demonstrated by the following impairment level findings: 1. Impaired strength to B LE major muscle groups 2. Impaired balance 3. Impaired activity tolerance 4. Impaired safety awareness Impairments are contributing to the following functional limitations: 1. Need for assistance with bed mobility skills 2. Need for assistance with with transfers 3. Need for assistance with ambulate without assistive device and physical assistance 4. Increase completion time for mobility ADL performance 5. Increased fall risk Patient is assessed as a Low 51621 complexity based on the following: History: 73-year-old male admitted to this facility for evaluation of mobility level and discharge needs Examination: AMPAC score of 18 with CMS score of 47% deficit with underlying impairments and functional limitations as noted above Presentation: Stable Decision Makin low complexity Goals: N/A. Patient goes home goes back today to assisted living facility where he previously was. See discharge recommendations below. DISCHARGE RECOMMENDATIONS: Continue with skilled Home Health PT services at [facility] in order to facilitate a smooth transition to discharge destination and to educate and train caregivers for safety as well as for functional maintenance program. No equipment needs at this time. TREATMENT CODE/TIME: 86686 29 minutes beginning at 9:59 AM.
--- NOTE | 2018-06-04 12:28 | PGE_ITS ---
Date of Service Date of service: 06/04/18 Time of Service: 10:00 Assessment and Plan (1) Pneumonia, community acquired: Current visit: Yes Status: Acute respiratory status remains stable, oxygenating well on room air. no fevers. white count slowly improving but plateaued at 16. will continue levaquin day 4/5. (2) Pancreatitis: Current visit: Yes Status: Ruled-out resolved. no abdominal pain, tolerating diet (3) Constipation: Current visit: Yes Status: Acute resolved with bowel management. continue bowel medications (4) Leukocytosis: Current visit: Yes Status: Acute white count plateaued at 16, max temp overnight 37.9. no evidence of ongoing pneumonia. no skin rashes, abdominal exam benign. will need to check urinalysis with new indwelling campa catheter placed in ED at OSH. urine did reflex for culture which is now pending. continue to monitor closely (5) Dementia associated with alcoholism without behavioral disturbance: Current visit: Yes Status: Chronic stable, continue safety precautions (6) DVT prophylaxis: Current visit: Yes Status: Acute continue heparin sq TID (7) Discharge planning issues: Current visit: Yes Status: Acute anticipate a discharge back to assisted living facility tomorrow if remains medically stable. (8) Urinary retention: Current visit: Yes Status: Acute campa placed in ED prior to arrival. could have been worsened by severe constipation. will removed campa and start voiding trial. UA pending. if unable to void will start tamsulosin. Subjective Patient reports: no new complaints and feels better Interval history since last seen: This is a 73-year-old male who was transferred from [facility] emergency room because of no bed availability at their facility. He was evaluated for constipation but was found to have very severe diffuse pancreatitis by CT scan and epigastric abdominal discomfort with palpation. He also had a significant leukocytosis and was afebrile upon presentation. CT scan of the abdomen revealed the pancreatitis but also bilateral lower lung infiltrates more on the left than right with chest x-ray not revealing lobar pneumonia. He was started on levaquin to treat pneumonia. His abdominal pain has resolved with bowel management. there is no clinical evidence of ongoing pancreatitis on exam with no ongoing pain and tolerating a diet. His white count has improved but has plateaued at 16. He remains afebrile. Initially it was recorded that he had a chronic indwelling campa catheter but actually it was placed in the ED. Exam Const General: cooperative, healthy appearing, comfortable and no acute distress Nutritional Appearance: obese Orientation: alert, awake, oriented to person and other (short term memory deficit) HENMT Head: normal to inspection Mouth: abnormal oral mucosae (oral mucosa dry) Resp Effort & Inspection: normal respiratory effort and able to speak in complete sentences Auscultation: clear to auscultation bilaterally, diminished lung sounds (bases bilaterally) and no wheezes Cardio Rate: regular rate Rhythm: regular rhythm GI Inspection: obesity Palpation: soft and nontender Auscultation: normal bowel sounds Male General Exam: Yes other (campa to gravity draining clear yellow urine) Skin General skin exam: no rashes or lesions noted Neuro General: alert, awake and oriented Patient Orientation: Person Extrem General: normal to inspection, full ROM and edema Laterality: bilateral (lower, trace) Psych Attitude: cooperative Objective Objective Clinical Data: Abnormal lab results 06/04/18 06/04/18 Range/Units 06:15 06:15 WBC 16.16 H (4.4-10.8) k/cumm RBC 3.62 L (4.50-6.00) m/cumm Hgb 10.6 L (13.5-17.5) g/dL Hct 33.0 L (40.0-50.0) % RDW 14.8 H (11.8-14.1) % Absolute Neutrophils 13.45 H (1.2-6.7) k/cumm Absolute Monocytes 1.29 H (0.11-0.7) k/cumm BUN 20 H (7-18) mg/dL Calcium 8.2 L (8.5-10.1) mg/dL Albumin 2.2 L (3.4-5.0) g/dL Vital Signs Temperature 37.3 C 06/04/18 07:25 Temperature Source Tympanic 06/04/18 07:25 Pulse 63 06/04/18 07:25 Pulse Rhythm Regular 06/04/18 07:39 Pulse 66 06/02/18 17:00 Respiratory Rate 20 06/04/18 07:25 Respiratory Effort 06/04/18 07:39 Respiratory Depth Normal 06/04/18 07:39 Respiratory Pattern Normal 06/04/18 07:39 Blood Pressure 111/63 06/04/18 07:25 Blood Pressure Mean 79 06/02/18 16:07 Pulse Oximetry 95 06/04/18 07:25 Oxygen Delivery Method Room Air 06/04/18 07:25 Oxygen Flow Rate 0 06/04/18 07:25 Pain Level 0 06/04/18 07:25 Comment 06/02/18 11:56 Intake & Output 06/03/18 06/04/18 06/04/18 23:59 11:59 23:59 Intake Total 2083.75 / 2333.75 360 / 360 Output Total 1400 / 2350 700 / 700 Balance 683.75 / -16.25 -340 / -340 Weight 118 kg Intake: IV 1603.75 / 1603.75 Oral 480 / 730 360 / 360 Output: Urine 1400 / 2350 700 / 700 Other: Urine Color Yellow Light Bita Urine Appearance Clear Clear Stool Size Small Stool Characteristics Soft Laboratory Results WBC 16.16 k/cumm (4.4-10.8) H 06/04/18 06:15 RBC 3.62 m/cumm (4.50-6.00) L 06/04/18 06:15 Hgb 10.6 g/dL (13.5-17.5) L 06/04/18 06:15 Hct 33.0 % (40.0-50.0) L 06/04/18 06:15 MCV 91.2 fL (80-95) 06/04/18 06:15 MCH 29.3 pg (27.0-33.0) 06/04/18 06:15 MCHC 32.1 g/dL (32.0-36.0) 06/04/18 06:15 RDW 14.8 % (11.8-14.1) H 06/04/18 06:15 Plt Count 296 x1000/uL (130-400) 06/04/18 06:15 MPV 10.4 fL (8.0-11.0) 06/04/18 06:15 Immature Gran % 0.2 06/04/18 06:15 Neutrophils % 83.2 06/04/18 06:15 Lymphocytes % 7.7 06/04/18 06:15 Monocytes % 8.0 06/04/18 06:15 Eosinophils % 0.8 06/04/18 06:15 Basophils % 0.1 06/04/18 06:15 Absolute Neutrophils 13.45 k/cumm (1.2-6.7) H 06/04/18 06:15 Absolute Lymphocytes 1.24 k/cumm (1.2-3.4) 06/04/18 06:15 Absolute Monocytes 1.29 k/cumm (0.11-0.7) H 06/04/18 06:15 Absolute Eosinophils 0.13 k/cumm (0.0-0.7) 06/04/18 06:15 Absolute Basophils 0.02 k/cumm (0.0-0.2) 06/04/18 06:15 Sodium 136 mmol/L (136-145) 06/04/18 06:15 Potassium 4.8 mmol/L (3.5-5.1) 06/04/18 06:15 Chloride 103 mmol/L (98-107) 06/04/18 06:15 Carbon Dioxide 24.0 mmol/L (21.0-32.0) 06/04/18 06:15 Anion Gap 9.0 mmol/L (3-11) 06/04/18 06:15 BUN 20 mg/dL (7-18) H 06/04/18 06:15 Creatinine 1.30 mg/dL (0.70-1.30) 06/04/18 06:15 Estimated GFR/1.73 m2 54.26 (mL/min/1.73m2) 06/04/18 06:15 Glucose 100 mg/dL (70-100) 06/04/18 06:15 Calcium 8.2 mg/dL (8.5-10.1) L 06/04/18 06:15 Magnesium 2.3 mg/dL (1.8-2.4) 06/04/18 06:15 Total Bilirubin 0.3 mg/dL (0.2-1.0) 06/04/18 06:15 Conjugated Bilirubin 0.10 mg/dL (0.00-0.20) 06/04/18 06:15 AST 25 U/L (15-37) 06/04/18 06:15 ALT 34 U/L (12-78) 06/04/18 06:15 Alkaline Phosphatase 66 U/L (46-116) 06/04/18 06:15 Total Protein 6.5 g/dL (6.4-8.2) 06/04/18 06:15 Albumin 2.2 g/dL (3.4-5.0) L 06/04/18 06:15 Triglycerides 86 mg/dL (30-150) 06/02/18 08:08 Total Cholesterol 97 mg/dL (50-200) 06/02/18 08:08 LDL Cholesterol Direct 63 mg/dL (<100) 06/02/18 08:08 HDL Cholesterol 21 mg/dL (40-60) L 06/02/18 08:08
--- NOTE | 2018-06-04 14:26 | PDOC.CMPRO ---
- If Service Date Differs Date of service: 06/04/18 Time of Service: 14:26 Care Management Progress Note S/O: Juan C remains acute today. WBC continues to be elevated, his campa was removed a urine culture was ordered and he remains on IV antibiotics. Anticipate he will discharge to [facility] . Family will not be available to transport to coordinate transportation via [facility]. A: 73 year old male admitted to 06/02/18 for Pneumonia, Pancreatitis, Gallstones P: will continue to monitor clinical status. Juan C will return to [facility]; [facility] living home in [place], [place]. He will transport via [facility].
--- NOTE | 2018-06-04 14:36 | CMPROGNOTE_ITS ---
- If Service Date Differs Date of service: 06/04/18 Time of Service: 14:26 Care Management Progress Note S/O: Juan C remains acute today. WBC continues to be elevated, his campa was removed a urine culture was ordered and he remains on IV antibiotics. Anticipate he will discharge to [facility] . Family will not be available to transport to coordinate transportation via [facility]. A: 73 year old male admitted to 06/02/18 for Pneumonia, Pancreatitis, Gallstones P: will continue to monitor clinical status. Juan C will return to [facility]; [facility] living home in [place], [place]. He will transport via [facility].
[2018-06-04 15:04] LABS: Bilirubin Negative (Negative); Blood Trace-intact (Negative); Clarity Clear; Glucose Negative (Negative); Ketones Negative (Negative); Leukocyte Esterase Negative (Negative); Nitrite Negative (Negative)
[2018-06-04 15:19] LABS: Bacteria Few HPF (Negative); C & S Indicated? Yes; Casts 0-2 Coarse Granular LPF (Negative); Crystals Negative HPF (Negative); Epithelial Cells Rare HPF (Negative); Mucus Trace (Negative); RBC 20-50 (0-2)
[2018-06-04 16:10] VITALS: BP 145/75; PULSE 67; RESP 17; TEMP 37.5; O2SAT 93
[2018-06-04] MEDS: Normal Saline Flush 10 ML SYR IVP (16:55)
[2018-06-04] MEDS: levoFLOXacin 750 MG/150 ML BAG 150 MG IVPB (16:56)
[2018-06-04 20:11] VITALS: BP 111/55; PULSE 66; RESP 18; TEMP 37.4; O2SAT 94
[2018-06-04] MEDS: Milk of Magnesia 30 ML CUP PO (20:18)
[2018-06-04] MEDS: Polyethylene Glycol 3350 17 GM PACKET PO (20:18)
[2018-06-04] MEDS: Mometasone 220 MCG 14 DOSE INHALER 1 PUFF IH (20:19)
[2018-06-05] VITALS (7 sets, daily range): BP systolic 118–131; BP diastolic 63–79; PULSE 62–88; RESP 2–24; TEMP 37–37.6; O2SAT 92–95
[2018-06-05] MEDS: Melatonin 3 MG TAB PO (00:24)
[2018-06-05] MEDS: Albuterol/Ipratropium 3 ML UPD VIAL UPD ×3 (00:24→11:09)
[2018-06-05] MEDS: traZODone 50 MG TAB PO (00:24)
[2018-06-05] MEDS: Heparin 5,000 UNITS/ML VIAL 5000 UNITS SC (06:17)
[2018-06-05 07:15] LABS: Abs Immature Grans 0.04 k/cumm (0.0-0.09); Absolute Basophil Count 0.03 k/cumm (0.0-0.2); Absolute Lymphocyte Count 1.36 k/cumm (1.2-3.4); Absolute Monocyte Count 1.38 k/cumm (0.11-0.7); Absolute Neutrophil Count 11.85 k/cumm (1.2-6.7); Basophils % 0.2; Eosinophils % 1.1; HCT 32.6 % (40.0-50.0); HGB 10.7 g/dL (13.5-17.5); Immature Grans % 0.3; Lymphocytes % 9.2; Mean Corp. HGB Concentration 32.8 g/dL (32.0-36.0); Mean Corpuscular Hemoglobin 29.6 pg (27.0-33.0); Mean Corpuscular Volume 90.1 fL (80-95); Mean Platelet Volume 10.1 fL (8.0-11.0); Monocytes % 9.3; Neutrophils % 79.9; Platelet Count 329 x1000/uL (130-400); RBC 3.62 m/cumm (4.50-6.00); RBC Distribution Width 14.7 % (11.8-14.1); White Blood Cell Count 14.83 k/cumm (4.4-10.8)
[2018-06-05 07:16] LABS: Absolute Eosinophil Count 0.16 k/cumm (0.0-0.7)
[2018-06-05 07:24] LABS: Anion Gap 6.2 mmol/L (3-11); BUN 19 mg/dL (7-18); CO2 26.8 mmol/L (21.0-32.0); CREATININE 1.34 mg/dL (0.70-1.30); Calcium 8.6 mg/dL (8.5-10.1); Chloride 100 mmol/L (98-107); Glucose 105 mg/dL (70-100); Potassium 4.7 mmol/L (3.5-5.1); Sodium 133 mmol/L (136-145)
[2018-06-05] MEDS: Atorvastatin 20 MG TAB PO (07:51)
[2018-06-05] MEDS: Docusate Sodium 100 MG CAP PO (07:51)
[2018-06-05] MEDS: Senna TAB 1 TAB PO (07:51)
[2018-06-05] MEDS: Carvedilol 25 MG TAB PO (07:52)
--- NOTE | 2018-06-05 10:39 | PDOC.CMDIS ---
LACE Index Scoring Tool - Questions: Length of Stay (in days): 3 Acuity (Admit via E.D.?): Yes Comorbidities: Congestive Heart Failure, Chronic Pulmonary Disease, Dementia E.D. Visits: 0 - Answers: Total Score: 11 Risk of Readmission: High Risk Care Management Discharge Reason for Hospitalization: Pneumonia, Pancreatitis Discharge Plan: Juan C will return to [facility]; his assisted living home in [place], [place]. CM notified RT of discharge; per report Juan C is now on room air and will not require O2 for transport. Juan C will transport via [facility] coordinated by this freelance writer, RCT reports Darío will be Juan C's transit mixer driver-slated to arrive at approximately 1410. CM notified M/S of above. Patient/Family Education Needs: Review of discharge instructions, transport coordinations, transfer considerations. Services Needed at Discharge: Day Care (Return to assisted living; [facility] in [place], [place]. )
--- NOTE | 2018-06-05 11:24 | CMDISCH_ITS ---
LACE Index Scoring Tool - Questions: Length of Stay (in days): 3 Acuity (Admit via E.D.?): Yes Comorbidities: Congestive Heart Failure, Chronic Pulmonary Disease, Dementia E.D. Visits: 0 - Answers: Total Score: 11 Risk of Readmission: High Risk Care Management Discharge Reason for Hospitalization: Pneumonia, Pancreatitis Discharge Plan: Juan C will return to [facility]; his assisted living home in [place], [place]. CM notified RT of discharge; per report Juan C is now on room air and will not require O2 for transport. Juan C will transport via [facility] coordinated by this fiction and nonfiction prose writer, RCT reports Darío will be Juan C's grab driver-slated to arrive at approximately 1410. CM notified M/S of above. Patient/Family Education Needs: Review of discharge instructions, transport coordinations, transfer considerations. Services Needed at Discharge: Day Care (Return to assisted living; [facility] in [place], [place]. )
--- NOTE | 2018-06-05 11:53 | W.PM.DS.N ---
Date of service: 06/05/18 Time of Service: 11:54 DS: Diagnosis Discharge Diagnosis (1) Pneumonia, community acquired: Status: Acute (2) Pancreatitis: Status: Ruled-out (3) Constipation: Status: Acute (4) Leukocytosis: Status: Acute (5) Dementia associated with alcoholism without behavioral disturbance: Status: Chronic (6) Urinary retention: Status: Acute Discharge Plan Disposition Patient Disposition: LEVEL III FACILITY Condition: Improving Discharge Details Reason For Visit: PNEUMONIA, PANCREATITIS Admit Date/Time: 06/02/18 01:24 Admit Provider: Paulie Ferreira Attending Provider: Paulie Ferreira Primary Care Provider: None,None Hospital Course Hospital Course: Mr. Das is a 73-year-old gentleman with a history of dementia associated with alcoholism, COPD, and right-sided congestive heart failure who was transferred from [facility] emergency Department on 06/02/18 due to no bed availability. He had presented to the [facility] emergency department with abdominal pain. At [facility] he had a CT scan of his abdomen which found constipation and reportedly severe diffuse pancreatitis as well as bilateral lower lung infiltrates, more on the left than the right. Chest x-ray did not reveal lobar pneumonia. He was found to have a significant leukocytosis at the time his of his presentation. He was placed on Levaquin for pneumonia. He did not appear clinically to have pancreatitis, his lipase was not markedly elevated. He was placed on bowel rest and IV hydration initially. Abdominal ultrasound revealed cholelithiasis, limited visualization of the pancreas. His abdominal pain improved with relief of constipation. He does have a history of right-sided congestive heart failure. He had an echocardiogram during his hospitalization which revealed wall thickness increased in a pattern of moderate LVH, LVEF was 65-70%, with findings consistent with diastolic dysfunction, mitral valve had mild regurgitation, pulmonary systolic pressure was elevated in the range of 50-60 mmHg. When he presented from [facility], he did have a Grider catheter in place. His leukocytosis was slow to improve, however, the Grider catheter was discontinued for a voiding trial, and he remained on Levaquin overnight. He passed of the voiding trial and his white count improved further. At the time of discharge, he denies shortness of breath, coughing, wheezing, abdominal pain, he is tolerating his diet, he denies any nausea or vomiting, he is urinating without difficulty and emptying his bladder. He is discharged back to the level 3 facility where he resides. He will complete an antibiotic course as an outpatient, he is currently on day #4 (at 1600) of a 5-day course. He will also be instructed to maintain a bowel regimen to avoid constipation. He will follow-up with his primary care provider as scheduled. Home Meds and New Rx's Prescriptions: New sennosides [Senokot] 8.6 mg Tablet 1 tab PO BID Qty: 60 RF: 0 polyethylene glycol 3350 17 gram Powder In Packet 17 g PO DAILY PRN PRN (Reason: Constipation) Qty: 30 RF: 0 levofloxacin 750 mg tablet 750 mg PO DAILY Qty: 2 RF: 0 Continued carvedilol 25 mg Tablet 25 mg PO BID RF: 0 atorvastatin 20 mg Tablet 20 mg PO DAILY RF: 0 ipratropium-albuterol 0.5 mg-3 mg(2.5 mg base)/3 mL Solution For Nebulization 3 ml QID RF: 0 trazodone 50 mg Tablet 50 mg HS RF: 0 melatonin 3 mg Tablet RF: 0 ferrous sulfate 325 mg (65 mg iron) Tablet 325 mg DAILY RF: 0 clotrimazole 1 % Cream 1 applic BID PRNRF: 0 Flovent HFA 110 mcg/actuation Hfa Aerosol Inhaler 1 puff BID RF: 0 spironolactone 50 mg Tablet 50 mg DAILY RF: 0 Incruse Ellipta 62.5 mcg/actuation Blister With Device 1 inh DAILY RF: 0 Combivent Respimat 20-100 mcg/actuation Mist 1 puff TID RF: 0 Discharge Instructions Instructions: Constipation (DC), Community Acquired Pneumonia (DC) Additional Instructions: Take antibiotics for 2 more doses, this afternoon and tomorrow. Continue using incentive spirometer. Continue taking bowel medications to avoid constipation. He will have labs drawn next week to reassess your white blood cell count. Follow-up with your primary care provider as scheduled. Stand Alone Forms: Nursing Discharge Form Diet:: Heart healthy Discharge Orders Discharge Orders: Discharge Order (Routine); Ordered 06/05/18 Ordered By: Viri Hurd Other Ambulatory Orders: Complete Blood Count No Diff (Routine) Timeframe: 1 Week Location: Determined by Patient Ordered By: Viri Hurd Exam Narrative Exam Narrative: General: Obese male, pleasantly confused, A&OX1, appears comfortable, sitting up in the chair. HEENT: Extraocular movements intact, pupils equal and round, mucous membranes moist. Neck: Supple, no JVD. Heart: Regular rate and rhythm, no murmur appreciated. Lungs: Respirations even and unlabored, rales to left base, no wheezing. GI: abdomen is soft, +bowel sounds, nontender on palpation, nondistended Extremities: No clubbing, cyanosis or edema. DS: Data Vitals/I&O Vitals and I&O: Vital Signs Temperature 37 C 06/05/18 07:55 Temperature Source Skin 06/05/18 07:55 Pulse 66 06/05/18 07:55 Pulse Rhythm Regular 06/05/18 07:30 Pulse 66 06/02/18 17:00 Respiratory Rate 18 06/05/18 07:55 Respiratory Effort Non-Labored 06/05/18 07:30 Respiratory Depth Normal 06/05/18 07:30 Respiratory Pattern Normal 06/05/18 07:30 Blood Pressure 118/63 06/05/18 07:55 Blood Pressure Mean 79 06/02/18 16:07 Pulse Oximetry 94 L 06/05/18 07:55 Oxygen Delivery Method Room Air 06/05/18 07:55 Oxygen Flow Rate 0 06/05/18 07:55 Pain Level 0 06/05/18 07:55 Comment 06/04/18 11:00 Intake & Output 06/04/18 06/04/18 06/05/18 11:59 23:59 11:59 Intake Total 360 / 910 550 / 910 240 / 240 Output Total 700 / 1120 420 / 1120 0 / 0 Balance -340 / -210 130 / -210 240 / 240 Weight 118 kg 116.8 kg Intake: IV 10 Oral 360 / 900 540 / 900 240 / 240 Output: Urine 700 / 1120 420 / 1120 0 / 0 Other: Urine Color Light Bita Yellow Urine Appearance Clear Clear Comment Pt voided approximately 20cc prior to the bladder scan. pt states he does not feel as if he needs to void bladder scanned x 3 for 13, 25 and 0 for an avg of 13cc. pt had voided earlier and did not use urinal and forgot to tell this nurse. bladder scan amounts from 0-50cc Stool Size Large Stool Characteristics Liquid Voiding Methods Toilet Toilet Completed studies during hospitalization [Text1]: Date of study: 06/02/2018 Transthoracic Echocardiography M-mode, complete 2D, complete spectral Doppler, and color Doppler *STUDY CONCLUSIONS* Summary: 1. Left ventricle: The cavity size was normal. Wall thickness was increased in a pattern of moderate LVH. Systolic function was hyperdynamic. The estimated ejection fraction was 65-70%. Findings consistent with diastolic dysfunction. Doppler parameters are consistent with high ventricular filling pressure. 2. Mitral valve: There was mild regurgitation. 3. Right ventricle: The cavity size was normal. Wall thickness was normal. Systolic function was normal. 4. Atrial septum: No defect or patent foramen ovale was identified. 5. Pulmonary arteries: Pulmonary systolic pressure was in the range of 50mm Hg to 60mm Hg. 6. Inferior vena cava: The vessel was patent and normal in size. The respirophasic diameter changes were in the normal range (greater than or equal to 50%), consistent with normal central venous pressure. 06/02/18: LIMITED ABDOMEN ULTRASOUND: The right upper quadrant was scanned. Multiple small stones are noted in the gallbladder. There is no gallbladder wall thickening or pericholecystic fluid. The common bile duct measures 4 mm. No common duct stones are seen. The pancreas appeared echogenic. No surrounding fluid is seen. The pancreas was not well visualized. IMPRESSION: Cholelithiasis. Limited visualization of the pancreas. 06/04/18: PORTABLE AP CHEST: Comparison is made with 01/30/08. No recent films are available. The heart is mildly enlarged. There are linear densities at the left lung base which could represent atelectasis versus infiltrate. IMPRESSION: Suboptimal exam. Question of left lower lobe infiltrate versus atelectasis. Labs on day of discharge: Labs from last 24 hours 06/05/18 06/05/18 06/04/18 06:35 06:35 12:00 WBC 14.83 H RBC 3.62 L Hgb 10.7 L Hct 32.6 L MCV 90.1 MCH 29.6 MCHC 32.8 RDW 14.7 H Plt Count 329 MPV 10.1 Immature Gran % 0.3 Neutrophils % 79.9 Lymphocytes % 9.2 Monocytes % 9.3 Eosinophils % 1.1 Basophils % 0.2 Absolute Neutrophils 11.85 H Absolute Lymphocytes 1.36 Absolute Monocytes 1.38 H Absolute Eosinophils 0.16 Absolute Basophils 0.03 Sodium 133 L Potassium 4.7 Chloride 100 Carbon Dioxide 26.8 Anion Gap 6.2 BUN 19 H Creatinine 1.34 H Estimated GFR/1.73 m2 52.40 Glucose 105 H Calcium 8.6 Urine Color Yellow Urine Clarity Clear Urine pH 6.0 Ur Specific Dawson 1.020 Urine Protein Trace H Urine Ketones Negative Urine Blood Trace-intact H Urine Nitrite Negative Urine Bilirubin Negative Urine Urobilinogen 1.0 H Ur Leukocyte Esterase Negative Urine RBC 20-50 H Urine WBC 5-10 Ur Epithelial Cells Rare Urine Crystals Negative Urine Bacteria Few Urine Casts 0-2 coarse granular Urine Mucus Trace Ur Culture Indicated? Yes Urine Glucose Negative Preliminary micro results at discharge 06/04/18 12:00 Urine Culture - Preliminary Urine - Reflex from [facility] Medical History Liver disease (Acute) Pneumathemia (Acute) CHF (congestive heart failure) (Chronic) COPD (chronic obstructive pulmonary disease) (Chronic) Dementia (Chronic) HTN (hypertension) (Chronic) Social History Smoking/Tobacco Use Status: Former Tobacco Use
== END 2018-06-05 14:11 | disposition designated cancer center or children's hospital (05) | DRG 190 ==
LOC: ICU 17:56 → MS 18:21 → ICU 06-06 14:35
PROVIDERS: Nurse Practitioner Acute Care; Admitting Provider Family Medicine; Visit Provider Internal Medicine
DX: J18.9 Pneumonia, unspecified organism (principal); F10.27 Alcohol dependence with alcohol-induced persisting dementia; J44.0 Chronic obstructive pulmonary disease with (acute) lower respiratory infection; K59.00 Constipation, unspecified; K80.20 Calculus of gallbladder without cholecystitis without obstruction; I50.813 Acute on chronic right heart failure; N40.1 Benign prostatic hyperplasia with lower urinary tract symptoms; R33.8 Other retention of urine; G47.00 Insomnia, unspecified; I10 Essential (primary) hypertension; R60.0 Localized edema; I51.7 Cardiomegaly; I27.20 Pulmonary hypertension, unspecified; I05.1 Rheumatic mitral insufficiency; Z96.0 Presence of urogenital implants; Z87.891 Personal history of nicotine dependence
CPT/HCPCS: 36415; 80048; 80053; 80061; 80076; 83721; 85027; 87081; 93306; 97161; 99223; 99232; 99233; 99239; NC; 71045; 76705; 81003; 81015; 83735; 85025; 87086; 94640; J1644; J1956; J3490; J7620